=== PATIENT | female | born 1990 | race American Indian/Alaskan Native ===

== ENCOUNTER 2016-11-08 05:30 | Emergency (ER) | payer SELFPAY ==
[2016-11-08 06:03] LABS: Bacteria,Urine 1+ /HPF (Negative); Bilirubin,Urine NEG (Negative); Blood,Urine NEG (Negative); Ketones,Urine 20 mg/dL (Negative); Leukocyte Esterase,Urine LG (Negative); Mucus,Urine 3+ /HPF; Nitrite,Urine NEG (Negative)
[2016-11-08 06:11] LABS: Basophils % (Auto) 0.7 % (0.0-1.8); Eosinophils % (Auto) 0.6 % (0.0-4.3); Hematocrit 38.1 % (30.3-42.9); Hemoglobin 12.6 gm/dl (10.1-14.3); Mean Corpuscular HGB Conc 33 % (30-34); Mean Corpuscular Hemoglobin 28 pg (28-32); Mean Corpuscular Volume 85 fl (79-97); Platelet Count 206 K/mm3 (140-440); Red Blood Count 4.46 M/mm3 (3.65-5.03); White Blood Count 5.2 K/mm3 (4.5-11.0)
[2016-11-08 06:26] LABS: Alanine Aminotransferase 24 units/L (7-56); Albumin/Globulin Ratio 1.1 %; Alkaline Phosphatase 50 units/L (35-129); Blood Urea Nitrogen 10 mg/dL (7-17); Calcium 8.9 mg/dL (8.4-10.2); Carbon Dioxide 17 mmol/L (22-30); Glucose 92 mg/dL (65-100); Total Protein 7.5 g/dL (6.3-8.2)
[2016-11-08 06:27] LABS: Anion Gap 23 mmol/L; Chloride 97.5 mmol/L (98-107); Potassium 3.3 mmol/L (3.6-5.0); Sodium 134 mmol/L (137-145)
[2016-11-08] MEDS ORDERED: TYLENOL PO ONE (06:57)
[2016-11-08] MEDS ORDERED: ZOFRAN IV PRN (06:57)
[2016-11-08] MEDS ORDERED: D5NS 1,000 ML IV SCH ×2 (07:00→09:00)
[2016-11-08] MEDS ORDERED: K-DUR PO ONE (07:25)
--- NOTE | 2016-11-08 07:26 | Emergency Department Report ---
ED Female HPI - General Chief complaint: Abdominal Pain Stated complaint: PREG/FLU SX Time Seen by Provider: 11/08/16 06:52 Source: patient Mode of arrival: Ambulatory Limitations: No Limitations - History of Present Illness Initial comments: 26-year-old female with no significant past medical history presents to the hospital complaining of cough with productive yellow sputum, nausea and vomiting times one week, and lower abdominal pain 2 weeks. Pain is described as a constant pressure rated 8/10 in intensity like "something is inside of me" . LMP 09/20/2016 patient states she is unsure if she is . History of 2 previous pregnancies with one miscarriage and one . I'll vaginal discharge reported. No vaginal bleeding, dysuria, diarrhea, or fever. Poor by mouth intake secondary to vomiting - Related Data Previous Rx's Medication Instructions Recorded Last Taken Type Nitrofurantoin [place]/M-Cryst 100 mg PO Q12HR #20 capsule 04/29/15 Unknown Rx [Macrobid CAP] Ondansetron [Zofran Odt] 4 mg PO Q8H #10 tab.rapdis 04/29/15 Unknown Rx Nitrofurantoin [place]/M-Cryst 100 mg PO Q12HR #14 capsule 11/08/16 Unknown Rx [Macrobid CAP] Ondansetron [Zofran Odt] 4 mg PO Q8HR PRN #20 tab.rapdis 11/08/16 Unknown Rx Prenatl Vit6/Iron/FA/B12/Ca/D3 1 each PO DAILY #30 tablet.seq 11/08/16 Unknown Rx [Mteryti Folic 5 Combo Pack] Allergies Allergy/AdvReac Type Severity Reaction Status Date / Time No Known Allergies Allergy Verified 04/29/15 12:27 ED Review of Systems ROS: Stated complaint: PREG/FLU SX Other details as noted in HPI Comment: All other systems reviewed and negative Other: Constitutional: No fevers chills Eyes: No eye pain visual changes ENT: No ear pain or throat pain Neck: Denies pain Respiratory: Denies cough wheezing shortness of breath Cardiovascular: Denies chest pain, palpitations, syncope GI: As per HPI : Denies dysuria Musculoskeletal: Denies back pain, joint swelling Skin: Denies rash, lesions, erythema Neurologic: Denies headache, numbness, weakness Psychiatric: Denies suicidal ideation, hallucinations ED Past Medical Hx - Past Medical History Previous Medical History?: No - Surgical History Past Surgical History?: No - Social History Smoking Status: Current Some Day Smoker Substance Use Type: Alcohol - Medications Home Medications: Home Medications Medication Instructions Recorded Confirmed Last Taken Type Nitrofurantoin [place]/M-Cryst 100 mg PO Q12HR #20 capsule 04/29/15 Unknown Rx [Macrobid CAP] Ondansetron [Zofran Odt] 4 mg PO Q8H #10 tab.rapdis 04/29/15 Unknown Rx Nitrofurantoin [place]/M-Cryst 100 mg PO Q12HR #14 capsule 11/08/16 Unknown Rx [Macrobid CAP] Ondansetron [Zofran Odt] 4 mg PO Q8HR PRN #20 tab.rapdis 11/08/16 Unknown Rx Prenatl Vit6/Iron/FA/B12/Ca/D3 1 each PO DAILY #30 tablet.seq 11/08/16 Unknown Rx [Mteryti Folic 5 Combo Pack] ED Physical Exam - General Limitations: No Limitations - Other Other exam information: General: No limitations, patient is alert in no acute distress Head exam: Atraumatic, normocephalic Eyes exam: Normal appearance, pupils equal reactive to light, extraocular movements intact ENT: Moist mucous membrane, normal oropharynx Neck exam: Normal inspection, full range of motion, no meningismus nontender Respiratory exam: Clear to auscultation bilateral, no wheezes, rales, crackles Cardiovascular: Normal rate and rhythm, normal heart sounds Abdomen: Soft, nondistended, mild afebrile cries and lower abdominal tenderness , with normal bowel sounds, no rebound, or guarding : Malodorous white discharge, no CMT or adnexal tenderness. No vaginal bleeding Extremity: Full range of motion normal inspection no deformity Back: Normal Inspection, full range of motion, no tenderness Neurologic: Alert, oriented x3, cranial nerves intact, no motor or sensory deficit Psychiatric: normal affect, normal mood Skin: Warm, dry, intact ED Course Vital Signs 11/08/16 11/08/16 11/08/16 05:42 07:08 08:08 Temperature 98.8 F 98.5 F Pulse Rate 72 68 Respiratory 18 16 18 Rate Blood Pressure 121/73 106/63 O2 Sat by Pulse 100 99 100 Oximetry - Consultations Consultation #1: 11/08/16 09:00 + trich, treatment discussed with Dr. 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 Agrees' s with 2 g Flagyl and outpatient follow-up ED Medical Decision Making - Lab Data Result diagrams: 11/08/16 05:50 11/08/16 05:50 Lab Results 11/08/16 11/08/16 11/08/16 Range/Units 05:50 05:50 05:52 WBC 5.2 (4.5-11.0) K/mm3 RBC 4.46 (3.65-5.03) M/mm3 Hgb 12.6 (10.1-14.3) gm/dl Hct 38.1 (30.3-42.9) % MCV 85 (79-97) fl MCH 28 (28-32) pg MCHC 33 (30-34) % RDW 13.0 L (13.2-15.2) % Plt Count 206 (140-440) K/mm3 Lymph % (Auto) 26.0 (13.4-35.0) % [place] % (Auto) 8.2 H (0.0-7.3) % Eos % (Auto) 0.6 (0.0-4.3) % Baso % (Auto) 0.7 (0.0-1.8) % Lymph # 1.4 (1.2-5.4) K/mm3 [place] # 0.4 (0.0-0.8) K/mm3 Eos # 0.0 (0.0-0.4) K/mm3 Baso # 0.0 (0.0-0.1) K/mm3 Seg Neutrophils % 64.5 (40.0-70.0) % Seg Neutrophils # 3.4 (1.8-7.7) K/mm3 Sodium 134 L (137-145) mmol/L Potassium 3.3 L (3.6-5.0) mmol/L Chloride 97.5 L (98-107) mmol/L Carbon Dioxide 17 L (22-30) mmol/L Anion Gap 23 mmol/L BUN 10 (7-17) mg/dL Creatinine 0.5 L (0.7-1.2) mg/dL Estimated GFR > 60 ml/min BUN/Creatinine Ratio 20.00 % Glucose 92 (65-100) mg/dL Calcium 8.9 (8.4-10.2) mg/dL Total Bilirubin 1.20 (0.1-1.2) mg/dL AST 20 (5-40) units/L ALT 24 (7-56) units/L Alkaline Phosphatase 50 (35-129) units/L Total Protein 7.5 (6.3-8.2) g/dL Albumin 4.0 (3.9-5) g/dL Albumin/Globulin Ratio 1.1 % HCG, Quant [id number] H (0-4) mIU/mL Urine Color (Yellow) Urine Turbidity (Clear) Urine pH (5.0-7.0) Ur Specific [place] (1.003-1.030) Urine Protein (Negative) mg/dL Urine Glucose (UA) (Negative) mg/dL Urine Ketones (Negative) mg/dL Urine Blood (Negative) Urine Nitrite (Negative) Urine Bilirubin (Negative) Urine Urobilinogen (<2.0) mg/dL Ur Leukocyte Esterase (Negative) Urine WBC (Auto) (0.0-6.0) /HPF Urine RBC (Auto) (0.0-6.0) /HPF U Epithel Cells (Auto) (0-13.0) /HPF Urine Bacteria (Auto) (Negative) /HPF Hyaline Casts /LPF Urine Mucus /HPF Blood Type Antibody Screen 11/08/16 11/08/16 Range/Units 08:40 Unknown WBC (4.5-11.0) K/mm3 RBC (3.65-5.03) M/mm3 Hgb (10.1-14.3) gm/dl Hct (30.3-42.9) % MCV (79-97) fl MCH (28-32) pg MCHC (30-34) % RDW (13.2-15.2) % Plt Count (140-440) K/mm3 Lymph % (Auto) (13.4-35.0) % Republic % (Auto) (0.0-7.3) % Eos % (Auto) (0.0-4.3) % Baso % (Auto) (0.0-1.8) % Lymph # (1.2-5.4) K/mm3 [place] # (0.0-0.8) K/mm3 Eos # (0.0-0.4) K/mm3 Baso # (0.0-0.1) K/mm3 Seg Neutrophils % (40.0-70.0) % Seg Neutrophils # (1.8-7.7) K/mm3 Sodium (137-145) mmol/L Potassium (3.6-5.0) mmol/L Chloride (98-107) mmol/L Carbon Dioxide (22-30) mmol/L Anion Gap mmol/L BUN (7-17) mg/dL Creatinine (0.7-1.2) mg/dL Estimated GFR ml/min BUN/Creatinine Ratio % Glucose (65-100) mg/dL Calcium (8.4-10.2) mg/dL Total Bilirubin (0.1-1.2) mg/dL AST (5-40) units/L ALT (7-56) units/L Alkaline Phosphatase (35-129) units/L Total Protein (6.3-8.2) g/dL Albumin (3.9-5) g/dL Albumin/Globulin Ratio % HCG, Quant (0-4) mIU/mL Urine Color Yellow (Yellow) Urine Turbidity Cloudy (Clear) Urine pH 6.0 (5.0-7.0) Ur Specific [place] 1.016 (1.003-1.030) Urine Protein 100 mg/dl (Negative) mg/dL Urine Glucose (UA) Neg (Negative) mg/dL Urine Ketones 20 (Negative) mg/dL Urine Blood Neg (Negative) Urine Nitrite Neg (Negative) Urine Bilirubin Neg (Negative) Urine Urobilinogen 4.0 (<2.0) mg/dL Ur Leukocyte Esterase Lg (Negative) Urine WBC (Auto) 154.0 H (0.0-6.0) /HPF Urine RBC (Auto) 12.0 (0.0-6.0) /HPF U Epithel Cells (Auto) 30.0 H (0-13.0) /HPF Urine Bacteria (Auto) 1+ (Negative) /HPF Hyaline Casts 2 /LPF Urine Mucus 3+ /HPF Blood Type O POSITIVE Antibody Screen Negative - Medical Decision Making Patient be treated for UTI. Received treatment for Trichomonas in the ED. PO potassium provided Medications for symptoms will be prescribed Patient has a subchorionic hemorrhage, O+ blood type does not require RhoGAM FUDGER follow-up will encouraged - Differential Diagnosis , UTI gastritis, dehydration, vaginitis, cervicitis Critical Care Time: No Critical care attestation.: If time is entered above; I have spent that time in minutes in the direct care of this critically ill patient, excluding procedure time. ED Disposition Clinical Impression: 8 weeks gestation of , Nausea and vomiting during , Hypokalemia, UTI (urinary tract infection), Trichomonal vaginitis, Subchorionic hematoma in first trimester Disposition: - TO HOME OR SELFCARE Is pt being admited?: No Does the pt Need Aspirin: No Condition: Stable Instructions: Morning Sickness (ED), (ED), Trichomoniasis (ED), Urinary Tract Infection in Women (ED), Hypokalemia (ED) Additional Instructions: Take the medication as prescribed. Return if symptoms worsen. Follow-up with FUDGER. Your partner will also need to be treated for Trichomonas infection. Your gonorrhea and chlamydia tests are pending and take approximately 3-4 days result. You may obtain results in medical records with a photo ID. You may also obtain results through the follow-up doctor office via medical record request. If you develop vaginal spotting this could be secondary to a subchorionic hemorrhage identified on ultrasound. This is a small collection abutting a uterus. If this develops I recommend pelvic rest i.e. no sex and [facility]UDGER follow-up. Return to the ER if bleeding is greater than 1 pad per hour or severe pain. Prescriptions: Nitrofurantoin [place]/M-Cryst [Macrobid CAP] 100 mg PO Q12HR #14 capsule Ondansetron [Zofran Odt] 4 mg PO Q8HR PRN #20 tab.rapdis PRN Reason: Nausea And Vomiting Prenatl Vit6/Iron/FA/B12/Ca/D3 [Mteryti Folic 5 Combo Pack] 1 each PO DAILY #30 tablet.seq Referrals: PRIMARY CARE, [Primary Care Provider] - 3-5 Days BRAULIO OCHOA MD [Staff Physician] - 3-5 Days Time of Disposition: 10:23
--- NOTE | 2016-11-08 08:00 | Ultrasound Report ---
ULTRASOUND OB LESS THAN 14 WEEKS FETUS ULTRASOUND OB TRANSVAGINAL HISTORY: Pelvic pain during . TECHNIQUE: Transabdominal and transvaginal ultrasound with color and spectral doppler interrogation. The uterus measures 10.1 x 6.7 x 6.5 cm. No uterine mass. The cervix is unremarkable. An intrauterine gestational sac containing a small pole and yolk sac is identified. heart rate measured 172 beats per minute. Robards-rump length measures 16.3 mm which correlates with an 8 week, 0 day . Estimated due date 06/20/17. A small subchorionic hemorrhage is identified along the posterior, superior gestational sac measuring 1.2 x 0.6 x 1.4 cm. Both ovaries are visualized and within normal limits. 2.3 cm corpus luteum cyst in the right ovary is suspected. No pelvic fluid collection. IMPRESSION: Viable, single intrauterine as described. Small subchorionic hemorrhage.
[2016-11-08] MEDS ORDERED: ZOFRAN IV ONE (08:04)
[2016-11-08] MEDS ORDERED: MACROBID PO ONE (08:26)
[2016-11-08] MEDS ORDERED: FLAGYL PO ONE (08:46)
[2016-11-08 10:49] VITALS: BP 100/60
== END 2016-11-08 10:49 | disposition home or self-care (01) ==
LOC: ED 05:30
DX: O23.41 Unspecified infection of urinary tract in pregnancy, first trimester (principal); O98.311 Other infections with a predominantly sexual mode of transmission complicating pregnancy, first trimester; A59.01 Trichomonal vulvovaginitis; O20.8 Other hemorrhage in early pregnancy; F17.210 Nicotine dependence, cigarettes, uncomplicated; Z3A.08 8 weeks gestation of pregnancy
CPT/HCPCS: 36415; 76801; 76817; 80053; 81001; 84702; 85025; 86850; 86900; 86901; 87086; 87210; 87591; 96361; 96374; 99285; J2405; J7042

== ENCOUNTER 2016-12-22 21:30 | Emergency (ER) | payer OTHER ==
[2016-12-22] MEDS: TYLENOL PO ONE (23:38)
[2016-12-22] MEDS: ZOFRAN ODT PO ONE (23:43)
[2016-12-23 00:27] LABS: Basophils % (Auto) 0.7 % (0.0-1.8); Hematocrit 34.4 % (30.3-42.9); Hemoglobin 11.4 gm/dl (10.1-14.3); Mean Corpuscular HGB Conc 33 % (30-34); Mean Corpuscular Hemoglobin 29 pg (28-32); Mean Corpuscular Volume 86 fl (79-97); Platelet Count 176 K/mm3 (140-440); Red Blood Count 3.99 M/mm3 (3.65-5.03); Red Cell Distribution Width 13.1 % (13.2-15.2); White Blood Count 6.3 K/mm3 (4.5-11.0)
--- NOTE | 2016-12-23 00:34 | Ultrasound Report ---
FINAL REPORT EXAM: US OB \T\gt; = 14 WEEKS FETUS HISTORY: ABDOMINAL PAIN TECHNIQUE: Transvaginal imaging was obtained of the pelvis. FINDINGS: There is a single viable intrauterine in breech presentation with an estimated gestational age of 14 weeks 6 days based on sonographic criteria. A complete survey of organs was not obtained. The placenta is posterior and is grade 0. heart rate is 149 BPM. The cervical length is 3.5 cm. Free fluid is not seen in not seen in the pelvis. IMPRESSION: Single viable breech intrauterine with an estimated gestational age of 14 weeks 6 days.
[2016-12-23 01:57] LABS: Bilirubin,Urine NEG (Negative); Blood,Urine NEG (Negative); Ketones,Urine 20 mg/dL (Negative); Leukocyte Esterase,Urine MOD (Negative); Mucus,Urine 3+ /HPF; Nitrite,Urine NEG (Negative)
--- NOTE | 2016-12-23 09:20 | Emergency Department Report ---
HPI - General Chief Complaint: Abdominal Pain Time Seen by Provider: 12/23/16 09:13 - HPI HPI: 26-year-old female 14 weeks GA, presents to ER with lower abdominal pain pelvic area pain without vaginal bleeding. Patient has not getting any care thus far stating that she doesn't have time to go to [facility]. No discharge, denies nausea, vomiting, chest pain, shortness of breath. ED Past Medical Hx - Past Medical History Previous Medical History?: No - Surgical History Past Surgical History?: No - Social History Smoking Status: Never Smoker Substance Use Type: None - Medications Home Medications: Home Medications Medication Instructions Recorded Confirmed Last Taken Type Nitrofurantoin [place]/M-Cryst 100 mg PO Q12HR #20 capsule 04/29/15 Unknown Rx [Macrobid CAP] Ondansetron [Zofran Odt] 4 mg PO Q8H #10 tab.rapdis 04/29/15 Unknown Rx Nitrofurantoin [place]/M-Cryst 100 mg PO Q12HR #14 capsule 11/08/16 Unknown Rx [Macrobid CAP] Ondansetron [Zofran Odt] 4 mg PO Q8HR PRN #20 tab.rapdis 11/08/16 Unknown Rx Prenatl Vit6/Iron/FA/B12/Ca/D3 1 each PO DAILY #30 tablet.seq 11/08/16 Unknown Rx [Mteryti Folic 5 Combo Pack] ED Review of Systems ROS: Stated complaint: LOWER ABD PAIN Other details as noted in HPI Comment: All other systems reviewed and negative Cardiovascular: as per HPI Endocrine: no symptoms reported Gastrointestinal: abdominal pain, nausea Physical Exam - Physical Exam Vital Signs: Vital Signs 12/22/16 12/23/16 12/23/16 23:22 02:42 07:17 Temperature 98.3 F 98.1 F 98.2 F Pulse Rate 68 58 L 57 L Respiratory 18 18 18 Rate Blood Pressure 111/54 96/52 108/62 Blood Pressure 111/56 [Left] Blood Pressure [Right] O2 Sat by Pulse 100 99 100 Oximetry 12/23/16 08:30 Temperature 98.6 F Pulse Rate 54 L Respiratory 16 Rate Blood Pressure Blood Pressure [Left] Blood Pressure 90/48 [Right] O2 Sat by Pulse 100 Oximetry Physical Exam: Physical Exam: - General Limitations: No Limitations General appearance: alert, in no apparent distress, obese - Head Head exam: Present: atraumatic, normocephalic - Eye Eye exam: Present: normal appearance - ENT ENT exam: Present: mucous membranes moist - Neck Neck exam: Present: normal inspection - Respiratory Respiratory exam: Present: normal lung sounds bilaterally. Absent: respiratory distress - Cardiovascular Cardiovascular Exam: Present: normal rhythm, tachycardia. Absent: systolic murmur, diastolic murmur, rubs, gallop - GI/Abdominal GI/Abdominal exam: Present: soft, normal bowel sounds, gravid appropriate for gestational age : Patient refused - Extremities Exam Extremities exam: Present: normal inspection - Back Exam Back exam: Present: normal inspection - Neurological Exam Neurological exam: Present: alert, oriented X3 - Psychiatric Psychiatric exam: normal affect and mood - Skin Skin exam: Present: warm, dry, intact, normal color. Absent: rash ED Course Vital Signs 12/22/16 12/23/16 12/23/16 23:22 02:42 07:17 Temperature 98.3 F 98.1 F 98.2 F Pulse Rate 68 58 L 57 L Respiratory 18 18 18 Rate Blood Pressure 111/54 96/52 108/62 Blood Pressure 111/56 [Left] Blood Pressure [Right] O2 Sat by Pulse 100 99 100 Oximetry 12/23/16 08:30 Temperature 98.6 F Pulse Rate 54 L Respiratory 16 Rate Blood Pressure Blood Pressure [Left] Blood Pressure 90/48 [Right] O2 Sat by Pulse 100 Oximetry ED Medical Decision Making - Lab Data Result diagrams: 12/22/16 23:36 Critical care attestation.: If time is entered above; I have spent that time in minutes in the direct care of this critically ill patient, excluding procedure time. ED Disposition Clinical Impression: Pelvic pain affecting Qualifiers: Trimester: second trimester Qualified Code(s): O26.892 - Other specified related conditions, second trimester Disposition: DC-01 TO HOME OR SELFCARE Is pt being admited?: No Does the pt Need Aspirin: No Condition: Stable Instructions: (ED), Abdominal Pain (ED) Referrals: RAMA RAMIREZ MD [Staff Physician] - 3-5 Days PRIMARY CARE, [Primary Care Provider] - 3-5 Days
[2016-12-23 09:30] VITALS: BP 104/54
== END 2016-12-23 09:30 | disposition home or self-care (01) ==
LOC: ED 21:30
DX: O26.891 Other specified pregnancy related conditions, first trimester (principal); R10.2 Pelvic and perineal pain; Z3A.14 14 weeks gestation of pregnancy
CPT/HCPCS: 36415; 76805; 81001; 84702; 85025; 86850; 86900; 86901; Q0162

== ENCOUNTER 2017-03-15 18:00 | Outpatient (CLI) | payer OTHER ==
[2017-03-15 19:18] VITALS: BP 108/65
[2017-03-15] MEDS ORDERED: LACTATED RINGERS 500 ML IV ONE (20:00)
[2017-03-15 20:19] LABS: Bacteria,Urine 1+ /HPF (Negative); Bilirubin,Urine NEG (Negative); Blood,Urine NEG (Negative); Color,Urine Amber (Yellow); Mucus,Urine 3+ /HPF; Nitrite,Urine NEG (Negative)
[2017-03-15] MEDS ORDERED: ceFAZolin 1 GM in NACL 0.9% 20 ML IV SCH (21:00)
== END 2017-03-15 22:04 | disposition home or self-care (01) ==
LOC: TRG 18:00
PROVIDERS: ATTEND Obstetrics & Gynecology
DX: O99.332 Smoking (tobacco) complicating pregnancy, second trimester (principal); O47.02 False labor before 37 completed weeks of gestation, second trimester; Z3A.25 25 weeks gestation of pregnancy
CPT/HCPCS: 81001; J0690; J7120; 59025

== ENCOUNTER 2018-11-09 15:55 | Emergency (ER) | payer SELFPAY ==
[2018-11-09 16:03] VITALS: BP 111/55
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
--- NOTE | 2018-11-09 16:36 | XRay Report ---
Right toes 4 views INDICATION: Right toe pain following injury IMPRESSION: No discrete fracture of the right fifth toe is identified. Signer Name: Sai Palma MD Signed: 11/09/2018 4:32 PM Workstation Name: [id number]
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
== END 2018-11-09 17:05 | disposition home or self-care (01) ==
LOC: ED 15:55
DX: S93.504A Unspecified sprain of right lesser toe(s), initial encounter (principal); Z87.891 Personal history of nicotine dependence; X58.XXXA Exposure to other specified factors, initial encounter; Y93.89 Activity, other specified; Y92.89 Other specified places as the place of occurrence of the external cause; Y99.8 Other external cause status

== ENCOUNTER 2019-09-14 01:20 | Emergency (ER) | payer SELFPAY ==
[2019-09-14] MEDS ORDERED: METOCLOPRAMIDE 10 MG/2 ML INJ IV ONE (08:08)
[2019-09-14] MEDS ORDERED: methylPREDNISolone Sod Succinate 125 MG/2 ML INJ IV ONE (08:09)
[2019-09-14] MEDS ORDERED: SODIUM CHLORIDE 0.9% 1000 ML 1,000 ML IV ONE (08:09)
--- NOTE | 2019-09-14 08:12 | Emergency Department Report ---
HPI - General Chief Complaint: Headache Time Seen by Provider: 09/14/19 08:06 - HPI HPI: This is a 29-year-old female presents to the emergency department with a complaint of a one-week history of intermittent headaches. Patient does have a history of migraine headaches. She has not taken anything for symptoms in the past few days. She denies any fever, vision change, slurred speech, numbness or paresthesias, or any neurological deficits, but she is sensitive to light. The patient has a "growth" to the right forehead that has been there for years and she says it does not cause her any pain or problems, but her headache is in that frontal region of her head at this time. No recent travel or sick contacts at home. The patient drove herself in to be seen today. The headache is currently 7 out of 10 in intensity. ED Past Medical Hx - Past Medical History Previous Medical History?: Yes Hx Hypertension: No Hx Diabetes: No Hx Deep Vein Thrombosis: No Hx Renal Disease: No Hx Sickle Cell Disease: No Hx Headaches / Migraines: Yes Hx Seizures: No Hx Asthma: No Hx HIV: No - Surgical History Past Surgical History?: No - Social History Smoking Status: Never Smoker Substance Use Type: Alcohol - Medications Home Medications: Home Medications Medication Instructions Recorded Confirmed Last Taken Type Nitrofurantoin [place]/M-Cryst 100 mg PO Q12HR #20 capsule 04/29/15 Unknown Rx [Macrobid CAP] Ondansetron [Zofran Odt] 4 mg PO Q8H #10 tab.rapdis 04/29/15 Unknown Rx Nitrofurantoin [place]/M-Cryst 100 mg PO Q12HR #14 capsule 11/08/16 Unknown Rx [Macrobid CAP] Ondansetron [Zofran Odt] 4 mg PO Q8HR PRN #20 tab.rapdis 11/08/16 Unknown Rx Prenatl Vit6/Iron/FA/B12/Ca/D3 1 each PO DAILY #30 tablet.seq 11/08/16 Unknown Rx [Mteryti Folic 5 Combo Pack] Acetaminophen/Codeine [Tylenol 1 tab PO Q6H PRN #12 tab 11/09/18 Unknown Rx /Codeine # 3 tab] HYDROcodone/APAP 5-325 [[place] 1 each PO Q6HR PRN #5 tablet 07/07/20 Unknown Rx 5/325] ED Review of Systems ROS: Stated complaint: MIGRAINE HEADACHE Other details as noted in HPI Comment: All other systems reviewed and negative Constitutional: denies: chills, fever Eyes: other (photophobia). denies: eye pain, vision change ENT: denies: ear pain, throat pain Respiratory: denies: shortness of breath Cardiovascular: denies: chest pain Gastrointestinal: denies: abdominal pain Neurological: headache. denies: weakness, numbness, paresthesias Physical Exam - Physical Exam Vital Signs: Vital Signs 09/14/19 01:35 Temperature 98.6 F Pulse Rate 59 L Respiratory 14 Rate Blood Pressure 101/45 O2 Sat by Pulse 98 Oximetry Physical Exam: GENERAL: The patient is well-developed well-nourished. HENT: Normocephalic. Atraumatic. Patient has moist mucous membranes. EYES: Extraocular motions are intact. No nystagmus. NECK: Supple. Trachea is midline. CHEST/LUNGS: Clear to auscultation. There is no respiratory distress noted. HEART/CARDIOVASCULAR: Regular. There is no tachycardia. ABDOMEN: Abdomen is soft, nontender. Patient has normal bowel sounds. SKIN: Skin is warm and dry. Patient has a growth to the right superior forehead that is mobile, soft and appears either cystic or could be a lipoma. NEURO: The patient is awake, alert, and oriented. The patient is cooperative. The patient has no focal neurologic deficits. Normal speech. Cranial nerves II through XII grossly intact. MUSCULOSKELETAL: There is no tenderness or deformity. There is no evidence of acute injury. ED Course Vital Signs 09/14/19 01:35 Temperature 98.6 F Pulse Rate 59 L Respiratory 14 Rate Blood Pressure 101/45 O2 Sat by Pulse 98 Oximetry ED Medical Decision Making - Medical Decision Making This patient presents to the emergency department with a complaint of a 1 week history of an intermittent headache. She does have a history of migraine headaches. On exam and she does not have any focal, motor or sensory deficits and her cranial nerves are intact. The area of "growth" on her head appears to be a cystic structure or a lipoma. It does not appear consistent with an abscess or a mass as it is mobile and does not appear tender to palpation. The patient was given some IV fluid resuscitation, Solu-Medrol and Reglan. She was reevaluated about 1.5 hours later after the medication was given and says that she is feeling improved. The patient's pain/intensity level was down to about a 1 out of 10. She was seen ambulatory in the emergency department and both appears and feels stable. She was instructed to follow-up with a primary care physician and has also been given a referral for a local neurologist to follow- up regarding her intermittent headaches/migraines. She will return to the ER with any worsening of her symptoms or any acute distress. Critical Care Time: No Critical care attestation.: If time is entered above; I have spent that time in minutes in the direct care of this critically ill patient, excluding procedure time. ED Disposition Clinical Impression: Headache Qualifiers: Headache type: unspecified Headache chronicity pattern: unspecified pattern Intractability: not intractable Qualified Code(s): R51 - Headache Disposition: DC-01 TO HOME OR SELFCARE Is pt being admited?: No Condition: Stable Instructions: Migraine Headache (ED), Acute Headache (ED) Additional Instructions: Please follow-up with a primary care physician in the next few days. Return to the emergency department with any worsening of your symptoms or any acute distress. I am giving you a referral for some local primary care physicians and clinics. I am also giving you a referral for a local neurologist, Dr. Álvarez, to follow-up regarding your headaches. You have been prescribed a medication that is sedating and therefore should not be taken prior to driving, working, and responsible for children and in no way should be mixed with alcohol of any quantity. Prescriptions: HYDROcodone/APAP 5-325 [[place] 5/325] 1 each PO Q6HR PRN #5 tablet PRN Reason: Pain Referrals: ALEX LARES MD [Primary Care Provider] - 3-5 Days VANDANA HENDRICKS MD [Staff Physician] - 3-5 Days [facility] [Provider Group] - 3-5 Days FRANCHESCA ÁLVAREZ MD [Referring] - 3-5 Days
[2019-09-14 11:14] VITALS: BP 116/74
== END 2019-09-14 11:14 | disposition home or self-care (01) ==
LOC: ED 01:20
DX: R51 Headache (principal); Z79.899 Other long term (current) drug therapy
CPT/HCPCS: 96374; 96375; 99282; J2765; J2930; J7030

== ENCOUNTER 2020-04-16 18:28 | Emergency (ER) | payer SELFPAY ==
[2020-04-16] MEDS ORDERED: ALUM-MAG HYDROXIDE-SIMETHICONE 200-200-20MG/5ML ORAL LIQD 30 ML PO ONE (19:30)
[2020-04-16] MEDS ORDERED: METOCLOPRAMIDE 10 MG TAB PO ONE (19:30)
--- NOTE | 2020-04-16 19:34 | Emergency Department Report ---
<JONES NAIK - Last Filed: 04/16/20 21:13> ED General Adult HPI - General Chief complaint: Abdominal Pain Stated complaint: VOMITTING/STOMACH HURTS Time Seen by Provider: 04/16/20 19:28 Source: patient Mode of arrival: Ambulatory Limitations: No Limitations - History of Present Illness Initial comments: Patient is a 29-year-old female presents emergency room with complaints of intermittent nausea vomiting for a month. She states that she has had increased gas and a burning sensation. She states that she is having upper abdominal discomfort. She is able to tolerate p.o. intake. She denies any diarrhea, dysuria, abnormal vaginal discharge, hematochezia, melena, hematemesis. No past medical history. No allergies to medications. She states that she believes her last menstrual cycle was possibly in early March but she is not sure, she has not taken a test, she does not know if she is or not. /P: 1/A: 2 - Related Data Previous Rx's Medication Instructions Recorded Last Taken Type Nitrofurantoin [place]/M-Cryst 100 mg PO Q12HR #20 capsule 04/29/15 Unknown Rx [Macrobid CAP] Ondansetron [Zofran Odt] 4 mg PO Q8H #10 tab.rapdis 04/29/15 Unknown Rx Nitrofurantoin [place]/M-Cryst 100 mg PO Q12HR #14 capsule 11/08/16 Unknown Rx [Macrobid CAP] Ondansetron [Zofran Odt] 4 mg PO Q8HR PRN #20 tab.rapdis 11/08/16 Unknown Rx Prenatl Vit6/Iron/FA/B12/Ca/D3 1 each PO DAILY #30 tablet.seq 11/08/16 Unknown Rx [Mteryti Folic 5 Combo Pack] Acetaminophen/Codeine [Tylenol 1 tab PO Q6H PRN #12 tab 11/09/18 Unknown Rx /Codeine # 3 tab] HYDROcodone/APAP 5-325 [[place] 1 each PO Q6HR PRN #5 tablet 09/14/19 Unknown Rx 5/325] Nitrofurantoin [place]/M-Cryst 100 mg PO Q12HR #14 capsule 04/16/20 Unknown Rx [Macrobid CAP] 21/Iron Fu/Folic Acid 1 each PO DAILY #30 tablet 04/16/20 Unknown Rx [ Complete Caplet] Allergies Allergy/AdvReac Type Severity Reaction Status Date / Time No Known Allergies Allergy Verified 04/29/15 12:27 ED Review of Systems Comment: All other systems reviewed and negative ED Past Medical Hx - Past Medical History Previous Medical History?: Yes Hx Hypertension: No Hx Diabetes: No Hx Deep Vein Thrombosis: No Hx Renal Disease: No Hx Sickle Cell Disease: No Hx Headaches / Migraines: Yes Hx Seizures: No Hx Asthma: No Hx HIV: No - Surgical History Past Surgical History?: Yes - Social History Smoking Status: Never Smoker Substance Use Type: None - Medications Home Medications: Home Medications Medication Instructions Recorded Confirmed Last Taken Type Nitrofurantoin [place]/M-Cryst 100 mg PO Q12HR #20 capsule 04/29/15 Unknown Rx [Macrobid CAP] Ondansetron [Zofran Odt] 4 mg PO Q8H #10 tab.rapdis 04/29/15 Unknown Rx Nitrofurantoin [place]/M-Cryst 100 mg PO Q12HR #14 capsule 11/08/16 Unknown Rx [Macrobid CAP] Ondansetron [Zofran Odt] 4 mg PO Q8HR PRN #20 tab.rapdis 11/08/16 Unknown Rx Prenatl Vit6/Iron/FA/B12/Ca/D3 1 each PO DAILY #30 tablet.seq 11/08/16 Unknown Rx [Mteryti Folic 5 Combo Pack] Acetaminophen/Codeine [Tylenol 1 tab PO Q6H PRN #12 tab 11/09/18 Unknown Rx /Codeine # 3 tab] HYDROcodone/APAP 5-325 [[place] 1 each PO Q6HR PRN #5 tablet 09/14/19 Unknown Rx 5/325] Nitrofurantoin [place]/M-Cryst 100 mg PO Q12HR #14 capsule 04/16/20 Unknown Rx [Macrobid CAP] 21/Iron Fu/Folic Acid 1 each PO DAILY #30 tablet 04/16/20 Unknown Rx [ Complete Caplet] ED Physical Exam - General Limitations: No Limitations General appearance: alert, in no apparent distress - Head Head exam: Present: atraumatic, normocephalic - Eye Eye exam: Present: normal appearance - ENT ENT exam: Present: mucous membranes moist - Respiratory Respiratory exam: Present: normal lung sounds bilaterally. Absent: respiratory distress, wheezes, rales, rhonchi, stridor, chest wall tenderness, accessory muscle use, decreased breath sounds, prolonged expiratory - Cardiovascular Cardiovascular Exam: Present: regular rate, normal rhythm, normal heart sounds. Absent: systolic murmur, diastolic murmur, rubs, gallop - GI/Abdominal GI/Abdominal exam: Present: soft, normal bowel sounds. Absent: distended, tenderness, guarding, rebound, rigid - Neurological Exam Neurological exam: Present: alert, oriented X3 - Psychiatric Psychiatric exam: Present: normal affect, normal mood - Skin Skin exam: Present: warm, dry, intact ED Medical Decision Making - Lab Data Result diagrams: 04/16/20 19:47 04/16/20 19:47 Lab Results 04/16/20 04/16/20 04/16/20 Range/Units 19:47 19:47 19:47 WBC 5.2 (4.5-11.0) K/mm3 RBC 4.29 (3.65-5.03) M/mm3 Hgb 12.7 (10.1-14.3) gm/dl Hct 38.1 (30.3-42.9) % MCV 89 (79-97) fl MCH 30 (28-32) pg MCHC 33 (30-34) % RDW 13.5 (13.2-15.2) % Plt Count 210 (140-440) K/mm3 Lymph % (Auto) 24.2 (13.4-35.0) % [place] % (Auto) 6.8 (0.0-7.3) % Eos % (Auto) 1.2 (0.0-4.3) % Baso % (Auto) 0.4 (0.0-1.8) % Lymph # (Auto) 1.3 (1.2-5.4) K/mm3 [place] # (Auto) 0.4 (0.0-0.8) K/mm3 Eos # (Auto) 0.1 (0.0-0.4) K/mm3 Baso # (Auto) 0.0 (0.0-0.1) K/mm3 Seg Neutrophils % 67.4 (40.0-70.0) % Seg Neutrophils # 3.5 (1.8-7.7) K/mm3 Sodium 134 L (137-145) mmol/L Potassium 4.2 (3.6-5.0) mmol/L Chloride 99.4 (98-107) mmol/L Carbon Dioxide 20 L (22-30) mmol/L Anion Gap 19 mmol/L BUN 10 (7-17) mg/dL Creatinine 0.6 (0.6-1.2) mg/dL Estimated GFR > 60 ml/min BUN/Creatinine Ratio 17 % Glucose 91 (65-100) mg/dL Calcium 9.4 (8.4-10.2) mg/dL Total Bilirubin 1.00 (0.1-1.2) mg/dL AST 18 (5-40) units/L ALT 13 (7-56) units/L Alkaline Phosphatase 57 (35-129) units/L Total Protein 7.2 (6.3-8.2) g/dL Albumin 4.4 (3.9-5) g/dL Albumin/Globulin Ratio 1.6 % Lipase 19 (13-60) units/L HCG, Quant 360797 H (0-4) mIU/mL Urine Color (Yellow) Urine Turbidity (Clear) Urine pH (5.0-7.0) Ur Specific Prim (1.003-1.030) Urine Protein (Negative) mg/dL Urine Glucose (UA) (Negative) mg/dL Urine Ketones (Negative) mg/dL Urine Blood (Negative) Urine Nitrite (Negative) Ur Reducing Substances Urine Bilirubin (Negative) Urine Ictotest Urine Urobilinogen (<2.0) mg/dL Ur Leukocyte Esterase (Negative) Urine WBC (Auto) (0.0-6.0) /HPF Urine RBC (Auto) (0.0-6.0) /HPF U Epithel Cells (Auto) (0-13.0) /HPF Urine Bacteria (Auto) (Negative) /HPF Urine Mucus /HPF Urine Yeast (Budding) /HPF 04/16/20 Range/Units Unknown WBC (4.5-11.0) K/mm3 RBC (3.65-5.03) M/mm3 Hgb (10.1-14.3) gm/dl Hct (30.3-42.9) % MCV (79-97) fl MCH (28-32) pg MCHC (30-34) % RDW (13.2-15.2) % Plt Count (140-440) K/mm3 Lymph % (Auto) (13.4-35.0) % [place] % (Auto) (0.0-7.3) % Eos % (Auto) (0.0-4.3) % Baso % (Auto) (0.0-1.8) % Lymph # (Auto) (1.2-5.4) K/mm3 [place] # (Auto) (0.0-0.8) K/mm3 Eos # (Auto) (0.0-0.4) K/mm3 Baso # (Auto) (0.0-0.1) K/mm3 Seg Neutrophils % (40.0-70.0) % Seg Neutrophils # (1.8-7.7) K/mm3 Sodium (137-145) mmol/L Potassium (3.6-5.0) mmol/L Chloride (98-107) mmol/L Carbon Dioxide (22-30) mmol/L Anion Gap mmol/L BUN (7-17) mg/dL Creatinine (0.6-1.2) mg/dL Estimated GFR ml/min BUN/Creatinine Ratio % Glucose (65-100) mg/dL Calcium (8.4-10.2) mg/dL Total Bilirubin (0.1-1.2) mg/dL AST (5-40) units/L ALT (7-56) units/L Alkaline Phosphatase (35-129) units/L Total Protein (6.3-8.2) g/dL Albumin (3.9-5) g/dL Albumin/Globulin Ratio % Lipase (13-60) units/L HCG, Quant (0-4) mIU/mL Urine Color [place] (Yellow) Urine Turbidity Cloudy (Clear) Urine pH 6.0 (5.0-7.0) Ur Specific Prim 1.019 (1.003-1.030) Urine Protein >500 (Negative) mg/dL Urine Glucose (UA) Neg (Negative) mg/dL Urine Ketones 20 (Negative) mg/dL Urine Blood Neg (Negative) Urine Nitrite Neg (Negative) Ur Reducing Substances Not Reportable Urine Bilirubin Neg (Negative) Urine Ictotest Not Reportable Urine Urobilinogen 2.0 (<2.0) mg/dL Ur Leukocyte Esterase Lg (Negative) Urine WBC (Auto) 57.0 H (0.0-6.0) /HPF Urine RBC (Auto) 24.0 (0.0-6.0) /HPF U Epithel Cells (Auto) 42.0 H (0-13.0) /HPF Urine Bacteria (Auto) 2+ (Negative) /HPF Urine Mucus 3+ /HPF Urine Yeast (Budding) 1+ /HPF - Medical Decision Making Patient is a 29-year-old female presents emergency room with complaints of intermittent nausea vomiting for a month. She states that she has had increased gas and a burning sensation. She states that she is having upper abdominal discomfort. She is able to tolerate p.o. intake. She denies any diarrhea, dysuria, abnormal vaginal discharge, hematochezia, melena, hematemesis. No past medical history. No allergies to medications. She states that she believes her last menstrual cycle was possibly in early March but she is not sure, she has not taken a test, she does not know if she is or not. /P: 1/A: 2. Vitals are normal. No abdominal tenderness on exam, no guarding, no rebound, no rigidity, normal bowel sounds, no peritoneal signs. hCG quant of [id number]. UA shows evidence of UTI, there are many epithelial cells, given the patient is , patient will be covered for UTI. Symptoms likely related to morning sickness and GERD. OB ultrasound ordered due to with abdominal pain and she has not received any care. Patient signed out to Tito Acevedo NP ultrasound and disposition ED Disposition Clinical Impression: Qualifiers: Weeks of gestation: 10 weeks Qualified Code(s): Z3A.10 - 10 weeks gestation of UTI (urinary tract infection) Qualifiers: Urinary tract infection type: site unspecified Hematuria presence: without hematuria Qualified Code(s): N39.0 - Urinary tract infection, site not specified Disposition: DC- TO HOME OR SELFCARE Condition: Stable Instructions: Abdominal Pain (ED), Care, and Urinary Tract Infection Additional Instructions: Follow-up with a [facility] doctor in 3-5 days or if symptoms worsen and continue return to emergency room as soon as possible. Prescriptions: Nitrofurantoin [place]/M-Cryst [Macrobid CAP] 100 mg PO Q12HR #14 capsule 21/Iron Fu/Folic Acid [ Complete Caplet] 1 each PO DAILY #30 tablet Referrals: PRIMARY CAREMD [Primary Care Provider] - 3-5 Days [facility] [Provider Group] - 3-5 Days [facility] [Provider Group] - 3-5 Days <TITO ACEVEDO - Last Filed: 04/16/20 22:57> ED Review of Systems ROS: Stated complaint: VOMITTING/STOMACH HURTS Other details as noted in HPI ED Course Vital Signs 04/16/20 04/16/20 18:33 18:39 Temperature 98.6 F Pulse Rate 86 Respiratory 18 Rate Blood Pressure 116/74 [Right] O2 Sat by Pulse 100 Oximetry ED Medical Decision Making - Lab Data Result diagrams: 04/16/20 19:47 04/16/20 19:47 - Radiology Data Referring Physician: JONES NAIK Patient Name: LOW SWARTZ Date of : 1990 Sex: Female Report Date: 2020-04-16 Report Status: [place] [address] Ultrasound Report Signed Patient: LOW SWARTZ MR# : [id number] : 1990 Acct:[id number] Age/Sex: 29 / F ADM Date: 04/16/20 Loc: ED Attending Dr: Ordering Physician: BASIA VELÁSQUEZ Date of Service: 04/16/20 Procedure(s): US OB <= 14 weeks fetus Accession Number(s): [id number] cc: BASIA VELÁSQUEZ ULTRASOUND OBSTETRIC INDICATION / CLINICAL INFORMATION: , abd pain. Pelvic pain and cramping. Clinical Gestational Age (GA) in weeks, days: Unknown TECHNIQUE: Transabdominal. COMPARISON: None available. FINDINGS: GESTATIONAL SAC: Well-defined oval shape and intrauterine in location. YOLK SAC: No significant abnormality. EMBRYO/FETUS: No significant abnormality. - [place]- Rump Length = 3.7 cm = 10, 4 weeks, days - Heart Rate, beats per minute (if present) = 170 ADNEXA: Not well visualized. FREE FLUID: None. ADDITIONAL FINDINGS: None. IMPRESSION: 1. Single, living intrauterine with estimated sonographic age of 10, 4 weeks, days. Signer Name: Ad North MD Signed: 04/16/2020 10:31 PM Workstation Name: [id number] Transcribed By: DT Dictated By: Oliver North MD Electronically Authenticated By: Oliver North MD Signed Date/Time: 04/16/202230 DD/ 28 TD/TT: - Medical Decision Making Patient was originally seen and examined by BASIA Purdy. Patient was signed out to me for pending ultrasound report. Patient is notified of the ultrasound report and laboratory results with no questions noted by the patient. Patient be treated with Macrobid. Patient was instructed to follow-up with a [facility] doctor in 3-5 days or if symptoms worsen and continue return to emergency room as soon as possible. At time of discharge, the patient does not seem toxic or ill in appearance. No acute signs of distress noted. Patient agrees to discharge treatment plan of care. No further questions noted by the patient. Critical care attestation.: If time is entered above; I have spent that time in minutes in the direct care of this critically ill patient, excluding procedure time. ED Disposition Is pt being admited?: No Does the pt Need Aspirin: No Time of Disposition: 22:57
[2020-04-16 20:21] LABS: Basophils % (Auto) 0.4 % (0.0-1.8); Eosinophils # (Auto) 0.1 K/mm3 (0.0-0.4); Eosinophils % (Auto) 1.2 % (0.0-4.3); Hematocrit 38.1 % (30.3-42.9); Hemoglobin 12.7 gm/dl (10.1-14.3); Lymphocytes # (Auto) 1.3 K/mm3 (1.2-5.4); Lymphocytes % (Auto) 24.2 % (13.4-35.0); Mean Corpuscular HGB Conc 33 % (30-34); Mean Corpuscular Volume 89 fl (79-97); Monocytes # (Auto) 0.4 K/mm3 (0.0-0.8); Monocytes % (Auto) 6.8 % (0.0-7.3); Platelet Count 210 K/mm3 (140-440); Red Blood Count 4.29 M/mm3 (3.65-5.03); Red Cell Distribution Width 13.5 % (13.2-15.2)
[2020-04-16 20:26] LABS: Bacteria,Urine 2+ /HPF (Negative); Mucus,Urine 3+ /HPF
[2020-04-16 20:26] LABS: Alanine Aminotransferase 13 units/L (7-56); Albumin 4.4 g/dL (3.9-5); Blood Urea Nitrogen 10 mg/dL (7-17); Calcium 9.4 mg/dL (8.4-10.2); Hemolysis Index 37
[2020-04-16 20:28] LABS: Bilirubin,Urine NEG (Negative); Blood,Urine NEG (Negative); Color,Urine Amber (Yellow)
[2020-04-16 20:32] LABS: BUN/Creatinine Ratio 17
[2020-04-16 20:34] LABS: Protein,Urine >500 mg/dL (Negative)
--- NOTE | 2020-04-16 22:35 | Ultrasound Report ---
ULTRASOUND OBSTETRIC INDICATION / CLINICAL INFORMATION: , abd pain. Pelvic pain and cramping. Clinical Gestational Age (GA) in weeks, days: Unknown TECHNIQUE: Transabdominal. COMPARISON: None available. FINDINGS: GESTATIONAL SAC: Well-defined oval shape and intrauterine in location. YOLK SAC: No significant abnormality. EMBRYO/FETUS: No significant abnormality. - [place]-Rump Length = 3.7 cm = 10, 4 weeks, days - Heart Rate, beats per minute (if present) = 170 ADNEXA: Not well visualized. FREE FLUID: None. ADDITIONAL FINDINGS: None. IMPRESSION: 1. Single, living intrauterine with estimated sonographic age of 10, 4 weeks, days. Signer Name: Ad North MD Signed: 04/16/2020 10:31 PM Workstation Name: [id number]
[2020-04-16 23:07] VITALS: BP 107/69
== END 2020-04-16 23:07 | disposition home or self-care (01) ==
LOC: ED 18:28
DX: O23.41 Unspecified infection of urinary tract in pregnancy, first trimester (principal); Z3A.10 10 weeks gestation of pregnancy; Z79.899 Other long term (current) drug therapy
CPT/HCPCS: 36415; 76801; 80053; 81001; 83690; 84702; 85025; 87086